=== PATIENT | female | born 1995 | race Caucasian/White ===

== ENCOUNTER → 2021-10-25 19:46 | Observation (INO) ==
[2021-10-25 16:08] LABS: Basophils # 0.1 K/mcL (0.0-0.2); Basophils % 0.3 %; Eosinophils % 0.2 %; Hematocrit 40.7 % (35.3-44.9); Hemoglobin 13.7 g/dL (11.5-15.4); Immature Granulocytes % 0.3 % (0-4); Lymphocytes # 2.1 K/mcL (0.6-4.6); Lymphocytes % 12.1 %; Mean Corpuscular HGB Conc 33.7 g/dL (31.6-35.5); Mean Corpuscular Hemoglobin 30.3 pg (28.0-33.3); Mean Platelet Volume 9.6 fL (9.4-12.4); Monocytes # 0.9 K/mcL (0.0-1.3); Monocytes % 5.3 %; Neutrophils # 14.3 K/mcL (1.6-8.9); Platelet Count 394 K/mcL (140-400); Red Blood Count 4.52 M/mcL (3.82-4.97); Red Cell Distribution Width 11.6 % (11.5-14.5); Segmented Neutrophils % 81.8 %; White Blood Count 17.5 K/mcL (4.3-11.1)
[2021-10-25 17:52] VITALS: TEMP 98.4
[2021-10-25 18:21] VITALS: O2SAT 95
[2021-10-25 18:25] VITALS: BP 106/62; PULSE 96
[~2021-10-25 19:46] MED LIST: *HR* FentaNYL (PF) 100 MCG/2 ML VIAL IVP PRN; *HR* FentaNYL (PF) 250 MCG/5 ML VIAL ONE; *HR* HYDROmorphone PF 0.5 MG/0.5 ML SYRINGE IVP PRN; *HR* Meperidine 25 MG/ML SYRINGE IVP PRN; *HR* Rocuronium Bromide 50 MG/5 ML VIAL ONE; *HR* Succinylcholine 200 MG/10 ML VIAL IVP ONE; Acetaminophen IV 1,000 MG/100 ML BAG IVPB ONE; Acetaminophen IV 1,000 MG/100 ML BAG IVPB PRN; Famotidine 20 MG/2 ML VIAL ONE; Ibuprofen 800 MG TABLET PO PRN; Ketorolac 30 MG/ML VIAL ONE; Lidocaine -MPF 2% 2 ML VIAL ONE; Methylergonovine 0.2 MG/ML AMPUL IM ONE; Metoclopramide 10 MG/2 ML VIAL ONE; Ondansetron 4 MG/2 ML VIAL IVP ONE; Promethazine 6.25 MG in Water for inj. (sterile) 20 ML IVPB PRN; Ringers Solution, Lactated 1,000 ML IVC SCH; Ringers Solution, Lactated 1,000 ML ONE
== END | disposition home or self-care (01) ==
LOC: 1NENULAB
PROVIDERS: ADMIT Obstetrics & Gynecology; ATTEND Obstetrics & Gynecology